=== PATIENT | female | born 1965 | race Caucasian/White ===

== ENCOUNTER → 2023-10-14 15:37 | Outpatient (REF) | payer OTHER, SELFPAY | LOC: RAD 15:37 | PROVIDERS: ATTENDING PHYSICIAN Family Medicine | DX: M54.12 Radiculopathy, cervical region (principal); S16.1XXA Strain of muscle, fascia and tendon at neck level, initial encounter | CPT/HCPCS: 72040 ==

== ENCOUNTER → 2025-06-21 13:47 | Outpatient (REF) | payer OTHER, SELFPAY | LOC: REG 13:47 | PROVIDERS: ATTENDING PHYSICIAN Internal Medicine | DX: R13.12 Dysphagia, oropharyngeal phase (principal) | CPT/HCPCS: 71046 ==